=== PATIENT | female | born 1965 | race Caucasian/White ===

== ENCOUNTER 2017-01-25 20:51 | Emergency (ER) | payer OTHER ==
--- NOTE | ~2017-01-25 | CR126 ---
[facility] A Service of [facility] & [facility] RADIOLOGY TEXT RESULTS PATIENT: HEMALATHA STAFFORD LOCATION: [facility] : 65 UNIT #: [id number] AGE: [address]: CR BENNETT APRN SEX: F ORDER DR: [id number] [facility] [address] [place], [place] [address] [id number] E MR#: [id number] Acc #: [id number] NAME: HEMALATHA STAFFORD : 1965 SEX: F STUDY DATE/TIME: 01/26/2017 00:01 UNIT: [facility] ROOM: STUDY DESCRIPTION: CR Foot Complete Min 3 View Lt Attending Physician: Cr Bennett Aprn Ordering Physician: Cr Bennett Aprn Primary Care Physician: [facility] MEDICAL IMAGING REPORT This report is preliminary unless electronic signature is present EXAM Left foot, 01/26/2017 at 0001 hours INDICATIONS Foot pain after fall 3 days ago. FINDINGS 3 views of the left foot were obtained. There is no fracture or malalignment identified. The soft tissues are normal. IMPRESSION Negative left foot. Dictated by... Jose Vega Jr., M.D. THIS IS AN ELECTRONICALLY VERIFIED REPORT Jose Vega Jr., M.D. at 01/26/2017 6:02 AM ALBERTO/mark TD: 01/26/2017 04:41 JOB #: [id number] MEDICAL IMAGING REPORT Page 1 of 1 COPY
--- NOTE | ~2017-01-25 | CR141 ---
[facility] A Service of [facility] & [facility] RADIOLOGY TEXT RESULTS PATIENT: HEMALATHA STAFFORD LOCATION: [facility] : 65 UNIT #: [id number] AGE: [address]: CR BENNETT APRN SEX: F ORDER DR: [id number] [facility] [address] [place], [place] [address] [id number] E MR#: [id number] Acc #: [id number] NAME: HEMALATHA STAFFORD : 1965 SEX: F STUDY DATE/TIME: 01/25/2017 23:58 UNIT: [facility] ROOM: STUDY DESCRIPTION: CR Hand Min 3 Views Lt Attending Physician: Cr Bennett Aprn Ordering Physician: Cr Bennett Aprn Primary Care Physician: [facility] MEDICAL IMAGING REPORT This report is preliminary unless electronic signature is present EXAM Left hand, 01/25/2017 at 23:58 INDICATION Hand pain after a fall 3 days ago. FINDINGS 3 views of the left hand were obtained. No fracture or malalignment is identified. The soft tissues are unremarkable. IMPRESSION Negative left hand. Dictated by... Jose Vega Jr., M.D. THIS IS AN ELECTRONICALLY VERIFIED REPORT Jose Vega Jr., M.D. at 01/26/2017 6:02 AM ALBERTO/mark TD: 01/26/2017 04:36 JOB #: [id number] MEDICAL IMAGING REPORT Page 1 of 1 COPY
--- NOTE | ~2017-01-25 | CR20 ---
[facility] A Service of [facility] & [facility] RADIOLOGY TEXT RESULTS PATIENT: HEMALATHA STAFFORD LOCATION: [facility] : 65 UNIT #: [id number] AGE: [address]: CR BENNETT APRN SEX: F ORDER DR: [id number] [facility] [address] [place], [place] [address] [id number] E MR#: [id number] Acc #: [id number] NAME: HEMALATHA STAFFORD : 1965 SEX: F STUDY DATE/TIME: 01/25/2017 23:59 UNIT: [facility] ROOM: STUDY DESCRIPTION: CR Ankle Min 3 Views Lt Attending Physician: Cr Bennett Aprn Ordering Physician: Cr Bennett Aprn Primary Care Physician: [facility] MEDICAL IMAGING REPORT This report is preliminary unless electronic signature is present EXAM Left ankle, 01/25/2017 at 23:59 INDICATION Ankle pain after fall 3 days ago. FINDINGS 3 views of the ankle were obtained. There is no fracture or malalignment. The mortise is intact. IMPRESSION Negative left ankle. Dictated by... Jose Vega Jr., M.D. THIS IS AN ELECTRONICALLY VERIFIED REPORT Jose Vega Jr., M.D. at 01/26/2017 6:02 AM ALBERTO/mark TD: 01/26/2017 04:33 JOB #: [id number] MEDICAL IMAGING REPORT Page 1 of 1 COPY
[~2017-01-25 20:51] MED LIST: ALBUTEROL MT; ALBUTEROL17 GM INH; ALBUTEROL2.5 MG/0.5 IH; ALBUTEROL20 ml INH; AUGMENTIN875 MG PO; AZITHROMYCIN250 MG PO; DESYREL100 MG PO; DUONEB 2.5-0.5 M3 ML NEB; HYDROXYZINE HCL25 M1 PO; LEVAQUIN750 M1 PO; LEVAQUIN750 MG PO; PREDNISONE PO; SYMBICORT INH; TESSALON200 MG PO; TOPAMAX25 MG PO; TUSSIONEX PENN473 ML PO
== END 2017-01-26 01:31 | disposition home or self-care (01) ==
LOC: CED 20:51 → CFTX 20:51
DX: S93.402A Sprain of unspecified ligament of left ankle, initial encounter (principal); S60.222A Contusion of left hand, initial encounter; F41.9 Anxiety disorder, unspecified; J45.909 Unspecified asthma, uncomplicated; F17.210 Nicotine dependence, cigarettes, uncomplicated; Z88.5 Allergy status to narcotic agent; W19.XXXA Unspecified fall, initial encounter; Y92.009 Unspecified place in unspecified non-institutional (private) residence as the place of occurrence of the external cause
CPT/HCPCS: 29405; 73130; 73610; 73630; 94644; 99284